=== PATIENT | female | born 1945 | race Caucasian/White ===

== ENCOUNTER 2021-02-18 11:14 | Emergency (ER) | payer OTHER ==
[~2021-02-18] VITALS: Ht 172.7 cm; Wt 95.3 kg
[2021-02-18] MEDS ORDERED: AMLODIPINE-OLM1 EAC3 (11:52)
[2021-02-18] MEDS ORDERED: LOSARTAN-HCTZ1 EAC1 PO (11:52)
[2021-02-18] MEDS ORDERED: CARBAMAZEPINE100 M1 PO (15:39)
[2021-02-18] MEDS ORDERED: KETO10TA2 PO (15:39)
[2021-02-18] MEDS ORDERED: NEURONTIN300 MG PO (15:39)
== END 2021-02-18 15:57 | disposition home or self-care (01) ==
LOC: ER 11:14
DX: G50.0 Trigeminal neuralgia (principal)